=== PATIENT | male | born 1990 | race Caucasian/White ===

== ENCOUNTER 2023-06-03 10:49 | Emergency (ER) | payer OTHER ==
[2023-06-03 11:14] VITALS: BP 115/83; O2SAT 99
--- NOTE | 2023-06-03 11:57 | ED Physician Documentation ---
PD HPI CHEST PAIN - Stated complaint Stated Complaint: BACK/CHEST PX - Chief complaint Chief Complaint: Cardiac - Additional information Additional information: 33-year-old gentleman presenting with right upper back pain. He describes sharp stabbing pain worse with movement is better when he leaves his arms at his side worse with reaching or grasping. He denies any recent injury or trauma. Does not feel real short of breath but it hurts when he does certain movements. No chest pain. No other health history at all. He is feeling quite anxious since this started. Review of Systems Cardiac: denies: Chest pain / pressure Respiratory: denies: Dyspnea Musculoskeletal: reports: Back pain PD PAST MEDICAL HISTORY - Past Medical History Past Medical History: Yes Cardiovascular: Hypertension GI: GERD Psych: Anxiety - Past Surgical History Past Surgical History: Yes - Present Medications Home Medications: Ambulatory Orders Medication Instructions Recorded Confirmed Omeprazole 1 tab PO DAILY 06/03/23 06/03/23 Propranolol [Inderal] 1 tab PO DAILY 06/03/23 06/03/23 Sertraline HCl [Zoloft] 1 tab PO DAILY 06/03/23 06/03/23 hydrOXYzine HCL [Hydroxyzine HCl] 1 tab PO DAILY PRN 06/03/23 06/03/23 hydroCHLOROthiazide [Hydrodiuril] 1 cap PO DAILY 06/03/23 06/03/23 - Allergies Allergies/Adverse Reactions: Allergies Allergy/AdvReac Type Severity Reaction Status Date / Time No Known Drug Allergies Allergy Verified 06/03/23 11:13 - Social History Does the pt smoke?: No Smoking Status: Never smoker Does the pt drink ETOH?: Yes PD ED PE NORMAL - Vitals Vital signs reviewed: Yes - General General: Alert and oriented X 3 - HEENT HEENT: Atraumatic - Neck Neck: Supple, no meningeal sign - Cardiac Cardiac: RRR, No murmur - Respiratory Respiratory: No respiratory distress, Clear bilaterally - Abdomen Abdomen: Normal bowel sounds, Soft - Derm Derm: Other (Tender to palpation right parasternal muscles out towards the subscapularis and scapula. ) - Neuro Neuro: Alert and oriented X 3 Results - Vitals Vitals: Vital Signs - 24 hr 06/03/23 11:08 Temperature 36.3 C L Heart Rate 115 H Respiratory 20 Rate Blood Pressure 115/83 H O2 Saturation 99 Oxygen O2 Source Room air - Rads (name of study) cxr Relevant Findings:: Final report received, EMP independent interpretation of test (nl study) PD Medical Decision Making - ED course ED course: Patient with pretty clear muscular etiology of back pain. Did check chest x-ray which is reassuring. No pneumothorax or infiltrate. No sign at this is cardiac equivalent or PE. Gave Toradol with good results recommend ibuprofen ice at home. Departure - Departure Disposition: Home, Self Care Clinical Impression: Back strain Qualifiers: Encounter type: initial encounter Qualified Code(s): S39.012A - Strain of muscle, fascia and tendon of lower back, initial encounter Instructions: ED Spasm Back No Trauma Comments: As we discussed your pain is likely due to some sore muscles in your back. Your chest x-ray is reassuring no sign that this is a collapsed lung pneumonia or any other serious cause such as a cardiac issue. Would recommend you take ibuprofen 600 mg 3 times a day use ice or heat on the affected area. Follow-up with your primary care physician 1 to 2 weeks. Forms: PCP List
[2023-06-03] MEDS: KETOROLAC 60 MG/2 ML VIAL IM STA (12:27)
--- NOTE | 2023-06-03 12:38 | XRAY Report ---
PROCEDURE: Chest 2V INDICATIONS: back pain, sob TECHNIQUE: 2 views of the chest were acquired. COMPARISON: None. FINDINGS: Surgical changes and devices: None. Lungs and pleura: No pleural effusions or pneumothorax. Lungs are clear. Mediastinum: Mediastinal contours appear normal. Heart size is normal. Bones and chest wall: No suspicious bony lesions. Overlying soft tissues appear unremarkable. IMPRESSION: No acute cardiopulmonary process. Reviewed by: Lexx Kerr MD on 06/03/2023 12:36 PM PDT Approved by: Lexx Kerr MD on 06/03/2023 12:36 PM PDT Station ID: [id number]
== END 2023-06-03 12:59 | disposition home or self-care (01) ==
LOC: ED 10:49
DX: S29.012A Strain of muscle and tendon of back wall of thorax, initial encounter (principal); X58.XXXA Exposure to other specified factors, initial encounter; I10 Essential (primary) hypertension
CPT/HCPCS: 96372; 99283